=== PATIENT | female | born 1950 | race Caucasian/White ===

== ENCOUNTER 2017-10-12 15:53 | Emergency (ER) | payer MEDICARE, OTHER, SELFPAY ==
[2017-10-12 15:59] VITALS: BP 133/82; PULSE 72; RESP 18; TEMP 36.6; O2SAT 99
--- NOTE | 2017-10-12 16:23 | ED.DENTAL ---
HPI - Dental/Oral General Chief complaint: Dental/Oral Stated complaint: PUSS INSIDE CHEEK Time Seen by Provider: 10/12/17 16:23 Source: patient Mode of arrival: ambulatory Limitations: no limitations History of Present Illness HPI Narrative: Patient states that approximately 1 month ago she was seen by Ear Nose and Throat doctor and had a procedure done to her right-sided parotid gland duct. Was on Augmentin for period of time afterwards. She states she completed that course. She states that at the end of last week she started noticing purulent drainage that she could express from the right-sided duct again. Called her operative surgeon who placed her on Augmentin. States she has been on that for approximately 2 days. She states that the symptoms have not improved. Has not had any fevers. Call the operative surgeon's office again who told her to come to the emergency department. Related Data Home Medications Medication Instructions Recorded Confirmed MOMETASONE FUROATE (ELOCON) 1 alia TOPICAL #30 ml 03/07/16 clobetasol-emollient 1 alia TOPICAL #30 gm 03/07/16 triamcinolone acetonide 1 alia TOPICAL #15 gm 03/07/16 [SALMON OIL ] #0 12/05/16 omeprazole 40 mg PO QAM #0 12/05/16 Previous Rx's Medication Instructions Recorded estradiol 1 patch TD SEE INSTRUCTIONS #8 04/25/17 patch clindamycin HCl 300 mg PO QID 7 Days #28 cap 10/12/17 Allergies Allergy/AdvReac Type Severity Reaction Status Date / Time aspirin [ASPIRIN] Allergy Unknown Unverified 09/03/17 12:36 Review of Systems Constitutional Denies chills, Denies fever(s), Denies lethargy and Denies weakness ENT Comments: Purulent drainage from right-sided parotid gland duct No shortness of breath Cardiovascular Denies dyspnea and Denies dyspnea on exertion Respiratory Denies cough, Denies dyspnea, Denies dyspnea on exertion and Denies wheezing Integumentary/Breasts Denies pruritus, Denies erythema, Denies rash and Denies wounds Neurologic Denies weakness Hematologic/Lymphatic Denies easy bruising Allergic/Immunologic Denies wheezing [facility] Social History Smoking Status: Never smoker Exam Initial Vital Signs Initial Vital Signs: Vital Signs Temperature 97.9 F 10/12/17 15:59 Pulse Rate 72 05/20/18 15:59 Respiratory Rate 18 10/12/17 15:59 Blood Pressure 133/82 H 10/12/17 15:59 Pulse Oximetry 99 10/12/17 15:59 HENMT Mouth: other (Patient with a 1 cm round area and of induration of the right parotid gland. With palpation of this area was able to express purulent material from the parotid gland duct.) Resp Effort & Inspection: normal respiratory effort, able to speak in complete sentences, no respiratory distress and no use of accessory muscles Auscultation: clear to auscultation bilaterally, no rales, no rhonchi and no wheezes Skin General: no rashes or lesions noted, No jaundice and No petechiae Neuro General: alert, awake and oriented x3 Course Vital Signs - 8 hr 10/12/17 15:59 10/12/17 17:21 Temperature 97.9 F Pulse Rate 72 75 Respiratory Rate 18 14 Blood Pressure 133/82 H Blood Pressure [Right Arm] 129/74 H Pulse Oximetry 99 96 MDM - Dental/Oral MDM Narrative Medical decision making narrative: Was able to express purulent material from the right-sided parotid gland duct. This did seem to decrease the fullness that was felt on that side. Has no skin changes overlying her right cheek. Will change her antibiotics to clindamycin. A culture was taken of the purulent material and patient was informed that it would be several days for this to return. She was instructed to contact her operative provider for further evaluation and treatment. She was given return precautions. She expressed understanding and agreement with plan Discharge Plan Departure Patient Disposition: Home, Self-Care Clinical Impression: Acute suppurative parotitis Discharge Date/Time: 10/12/17 17:28 Interventions: ED Discharge Assessment Last Done: 10/12/17 17:24 Instructions: Parotitis Activity Restrictions/Additional Instructions: Stop the Augmentin. Start the antibiotics that she were given today. Call your ear nose and throat surgeon tomorrow for a follow-up. Return to the emergency department for any new or worsening symptoms Prescriptions: New clindamycin HCl 300 mg capsule 300 mg PO QID 7 Days Qty: 28 RF: 0 No Action clobetasol-emollient 0.05 % cream 1 alia Topical Qty: 30 RF: 0 triamcinolone acetonide 0.1 % cream 1 alia Topical Qty: 15 RF: 0 MOMETASONE FUROATE (ELOCON) 1 alia Topical Qty: 30 RF: 0 [SALMON OIL ] Qty: 0 RF: 0 omeprazole 40 MG capsule,delayed release(DR/EC) 40 mg PO QAM Qty: 0 RF: 0 estradiol 0.05 MG/24 HR patch semiweekly 1 patch TD SEE INSTRUCTIONS Qty: 8 RF: 11
[2017-10-12 17:21] VITALS: BP 129/74; PULSE 75; RESP 14; O2SAT 96
== END 2017-10-12 17:28 | disposition home or self-care (01) ==
PROVIDERS: Emergency Provider Emergency Medicine; Family Provider Internal Medicine; PCP Internal Medicine
DX: K11.20 Sialoadenitis, unspecified (principal)
CPT/HCPCS: 87070; 87075; 87205; 99282

== ENCOUNTER → 2017-10-31 12:48 | Outpatient (REF) | payer MEDICARE, OTHER, SELFPAY ==
[2017-10-31 15:15] LABS: Adenovirus F 40/41 Not Detected (Not Detect); Astrovirus Not Detected (Not Detect); Campylobacter Not Detected (Not Detect); Clostridium difficile toxin AB Detected (Not Detect); Cryptosporidium Not Detected (Not Detect); Cyclospora cayetanensis Not Detected (Not Detect); Entamoeba histolytica Not Detected (Not Detect); Enteroaggregative E.coli Not Detected (Not Detect); Enteropathogenic E.coli Not Detected (Not Detect); Enterotoxigenic E.coli It/st Not Detected (Not Detect); Giardia lamblia Not Detected (Not Detect); Norovirus GI/GII Not Detected (Not Detect); Plesiomonsa shigelloides Not Detected (Not Detect); Rotavirus A Not Detected (Not Detect); Salmonella Not Detected (Not Detect); Shiga-like toxin-prod E.coli Not Detected (Not Detect); Shigella/Enteroinvasive E.coli Not Detected (Not Detect); Vibrio Not Detected (Not Detect); Vibrio cholerae Not Detected (Not Detect); Yersinia enterocolitica Not Detected (Not Detect)
== END ==
LOC: LAB 12:48
PROVIDERS: Family Provider Internal Medicine; PCP Internal Medicine; Visit Provider Internal Medicine
DX: R19.7 Diarrhea, unspecified (principal)
CPT/HCPCS: 87507

== ENCOUNTER → 2018-05-29 11:05 | Outpatient (CLI) | payer MEDICARE, OTHER, SELFPAY ==
--- NOTE | 2018-05-29 | DI.MG.S_ITS ---
BILATERAL DIGITAL SCREENING MAMMOGRAM 3D/2D WITH CAD: 05/29/2018 CLINICAL: Routine screening. Comparison is made to exams dated: 02/24/2017 mammogram - [facility], 11/13/2015 mammogram, and 09/29/2014 mammogram - [facility]. The tissue of both breasts is heterogeneously dense. This may lower the sensitivity of mammography. Current study was also evaluated with a Computer Aided Detection (CAD) system. No significant masses, calcifications, or other findings are seen in either breast. There has been no significant interval change. IMPRESSION: NEGATIVE There is no mammographic evidence of malignancy. A 1 year screening mammogram is recommended. This exam was interpreted at Station ID: [id number]. NOTE: For mammograms, a report in lay terms will be sent to the patient. Approximately 15% of breast malignancies will not be visualized mammographically. In the management of a palpable breast mass, a negative mammogram must not discourage biopsy of a clinically suspicious lesion. Electronically Signed By: Jeremias felix/kyrie:05/29/2018 11:53:08 copy to: ELIESER SUAREZ letter sent: Normal Exam ACR BI-RADS Category 1: Negative [id number]
== END ==
PROVIDERS: PCP Internal Medicine; Visit Provider Internal Medicine
DX: Z12.31 Encounter for screening mammogram for malignant neoplasm of breast (principal)
CPT/HCPCS: 77063; 77067

== ENCOUNTER → 2019-03-10 10:07 | Outpatient (CLI) | payer MEDICARE, OTHER, SELFPAY ==
[2019-03-11 16:11] LABS: Cancer Antigen 125 8 U/mL (0-35)
== END ==
PROVIDERS: PCP Internal Medicine; Visit Provider Specialist
DX: N83.202 Unspecified ovarian cyst, left side (principal)
CPT/HCPCS: 36415; 86304

== ENCOUNTER → 2019-07-01 15:40 | Outpatient (CLI) | payer MEDICARE, OTHER, SELFPAY ==
--- NOTE | 2019-07-01 16:05 | DI.MG.S_ITS ---
Patient Name: RANDALL JHA date: 1950 Sex: F Attending Physician: Neeru Indications: Date: 07/01/2019 16:05 At the request of: ELIESER SUAREZ Procedure: MM screening mammo BI BILATERAL DIGITAL SCREENING MAMMOGRAM 3D/2D WITH CAD: 07/01/2019 CLINICAL: Routine screening. Comparison is made to exams dated: 05/29/2018 mammogram, 02/24/2017 mammogram - [facility], 11/13/2015 mammogram, and 09/29/2014 mammogram - [facility]. The tissue of both breasts is heterogeneously dense. This may lower the sensitivity of mammography. Current study was also evaluated with a Computer Aided Detection (CAD) system. No significant masses, calcifications, or other findings are seen in either breast. There has been no significant interval change. IMPRESSION: NEGATIVE There is no mammographic evidence of malignancy. A 1 year screening mammogram is recommended. This exam was interpreted at Station ID: [id number]. NOTE: For mammograms, a report in lay terms will be sent to the patient. Approximately 15% of breast malignancies will not be visualized mammographically. In the management of a palpable breast mass, a negative mammogram must not discourage biopsy of a clinically suspicious lesion. Electronically Signed By: Galdino field/kyrie:07/01/2019 18:20:29 copy to: Hayden Braun letter sent: Normal Exam ACR BI-RADS Category 1: Negative [id number]
== END ==
PROVIDERS: PCP Internal Medicine; Referring Provider Specialist; Visit Provider Specialist
DX: Z12.31 Encounter for screening mammogram for malignant neoplasm of breast (principal)
CPT/HCPCS: 77063; 77067

== ENCOUNTER → 2020-01-08 13:22 | Outpatient (CLI) | payer MEDICARE, OTHER, SELFPAY ==
[2020-01-09 20:46] LABS: COVID19 Sendout Not Detected (Not Detect)
== END ==
PROVIDERS: PCP Internal Medicine; Visit Provider Physician Assistant
DX: Z11.59 Encounter for screening for other viral diseases (principal)
CPT/HCPCS: 87635

== ENCOUNTER → 2020-01-21 13:05 | Outpatient (CLI) | payer MEDICARE, OTHER, SELFPAY | PROVIDERS: PCP Internal Medicine; Referring Provider Internal Medicine; Visit Provider Specialist | DX: Z13.820 Encounter for screening for osteoporosis (principal); Z78.0 Asymptomatic menopausal state; Z82.62 Family history of osteoporosis | CPT/HCPCS: 77080 ==

== ENCOUNTER → 2020-03-08 10:42 | Outpatient (CLI) | payer MEDICARE, OTHER, SELFPAY ==
--- NOTE | 2020-03-08 10:43 | DI.US.S_ITS ---
PROCEDURE: US ABDOMEN COMPLETE INDICATIONS: BLOATING TECHNIQUE: Real-time scanning was performed of the abdominal and retroperitoneal organs, with image documentation. COMPARISON: None. FINDINGS: Liver: Liver is normal in size and homogeneous in echotexture. The main portal vein demonstrates normal size at 1.2 cm and is patent. Gallbladder: No findings of gallstones or sludge are seen. The gallbladder wall is not thickened, measuring 3 mm or less. No specific pericholecystic fluid is seen. The sonographic Slade sign is negative. Biliary ducts: Intrahepatic bile ducts are non-dilated. Extrahepatic bile duct caliber measures 5 mm. Normal is 6-7 mm or less in diameter, or 10 mm or less post-cholecystectomy. Pancreas: Visualized portions of the pancreas are sonographically normal. Spleen: Spleen is normal in size and homogeneous in echotexture. Kidneys: Kidneys are normal in size and echotexture. Right kidney measures 12.4 cm long; left kidney measures 13.3 cm long. No hydronephrosis or nephrolithiasis. There is a simple cyst seen within the left mid kidney at measures up to 4.5 cm. Within the mid cortex of the right kidney, there is a solid, nonshadowing echogenic focus that measures up to 11 mm. No abnormal vascularity can be seen. Aorta: Visualized aorta is normal in caliber at less than 3 cm. Iliacs: Proximal common iliac arteries are normal in caliber at less than 2.5 cm. IVC: Intrahepatic inferior vena cava is patent. Miscellaneous: No free abdominal fluid. IMPRESSION: No imaging explanation is found for this patient's presenting symptoms. The gallbladder demonstrates a normal sonographic appearance. No biliary dilatation is seen. Likely benign fat containing lesion seen involving the mid cortex of the right kidney. Although no specific imaging follow-up is recommended, attention should be paid to this focus on any future follow-up studies. Simple appearing left renal cyst incidentally noted. Dictated by: Dk Mariee M.D. on 03/08/2020 at 11:04 Approved by: Dk Mariee M.D. on 03/08/2020 at 11:05
== END ==
PROVIDERS: PCP Internal Medicine; Referring Provider Internal Medicine; Visit Provider Specialist
DX: R14.0 Abdominal distension (gaseous) (principal); R14.2 Eructation; N83.202 Unspecified ovarian cyst, left side; N28.1 Cyst of kidney, acquired
CPT/HCPCS: 76700

== ENCOUNTER 2020-04-04 13:18 | Outpatient (RCR) | payer MEDICARE, OTHER, SELFPAY ==
--- NOTE | 2020-04-07 15:58 | ST.OPIE ---
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 She states that burping emerges from stomach, often requiring her to shift positions to expel it . Generally she experiences no burping during the day when she is upright, nor during occasional daytime naps which she takes lying propped up on her couch. She believes her bed is propped up 6 but is not sure. She is concerned about her general health d/t lack of good rest, and also has noted slow but consistent unintentional weight loss recently, ~5 lbs at this point . The pt underwent a sleep study that determined she does not meet qualifications for CPAP. She recently also underwent endoscopy with GI Dr. Diaz at [facility] in [place]. He recommended Nortriptyline and/or cannabis. The pt did not like Nortriptyline side effects and discontinued, but finds that cannabis does help her sleep somewhat better at night but does not reduce burping. Also at Dr. Diaz's recommendation d/ t concern that she may be swallowing air, the pt has largely eliminated chewing gum to reduce frequency of swallowing saliva. The pt's diet is consistent each day: She has an egg and kefir smoothie for breakfast, cooked vegetables with butter for lunch, and meat and potatoes for dinner. She does not drink carbonated beverages and consumes small amounts of caffeine only from chocolate occasionally. Typically, she eats dinner at 6:00 and is in bed by 10 pm. She has not noticed a difference in what and when she eats. She endorsed minor indigestion and burping occasionally if she eats too late, but this does not account for the frequency or degree of burping which brings her here today. The pt did report history of choking on saliva when she starts to speak, which has been happening for the 2nd half of her life. Additionally, her right side parotid gland accumulates saliva, requiring the pt to manually express it at least 10x/day. Subjective Observations The pt arrived on time and provided case study supplemental to medical records. Objective Assessment Mental Status Alert,Responsive,Cooperative Food and Liquid Trials Comment Oral peripheral exam and oral trials were not administered as the pt denies difficulty with mastication and swallow. Trials may be administered in future treatment as part of ongoing assessment. Today, detailed case study was collected, including the pt's daily oral intake contents and routine as well as habits that may related to symptoms of GERD/LPR that could contribute to burping issues. She denied GERD/LPR symptoms. She identified the following vegetables as being part of her routine lunch: Carrots, onions, broccoli, green string beans, cauliflower, beets, [place] sprouts, zuchini or other squashes. Advised the pt to complete a 3-wk trial of modifications to lunch diet, eliminating vegetables that tend to be gaseous, such as cauliflower, onions and [place] sprouts. Also advised the pt to elevate the head of her bed to 30 degrees for 3 wks. She was agreeable to this . The pt had questions related to potential effects of stress . She informed that about 5 yrs ago she went through many stressful situations at once and experienced significant anxiety and depression as a result. She felt those issues were ~95% resolved, but questioned if those experiences could be related to her symptoms. We discussed the variety of physical expressions of stress. The pt requested referral to a mental health counselor, and the clinician directed her to [employer]'s website where she could search for a therapist. Recommended she seek a counselor specializing in life transitions. She expressed appreciation and intention to do so. Results While no cause of the pt's condition was obvious, her description of routine oral intake and sleeping habits suggests a possible connection between the timing of intake and types of foods, as well as sleeping posture. A number of details are interestin. The pt regularly consumes a lunch entirely of vegetables for her midday meal, many of which are known to cause gas. The consistency of the timing of her meal and the timing her burping may suggest the two are related. 2. The pt does not appear to have GERD/LPR, based on GI findings and pt report; however, she experiences burping when she is lying flat in bed at night but not when she is propped up on the couch while napping during the day. 3. The pt feels development of burping in her stomach/lower esophagus and frequently needs to modify her body to assist in expelling it. This indicates that the pt is, in fact, belching and not injecting air, the latter of which would be differently treated. 4. If the cause of belching were because the pt is swallowing air with oral intake or saliva, one would expect belching to occur throughout the day or at least with more frequency than only at night. 5. Whether or not stress may be a factor as well is unknown ; however, given the pt's concerns related to anxiety and depression experienced in the [id number] past, she may very well benefit in many ways from working with a mental health counselor. Modification of the pt's intake during midday meal as well as an elevated posture during sleep may have a positive effect in reducing the pt's symptoms. A 3-wk trial of eliminating gaseous vegetables and elevating the HoB to 30 degrees is therefore recommended. The pt was agreeable. Will f/u with the pt in 3 wks at the end of the trial. Recommendations Instrumental Assessment No Swallowing Treatment Yes Frequency 1-3 additional visits over 2 months Recommended Solids Regular Recommended Liquids Thin Other Recommendations Avoid gas-causing foods; elevate head of bed to 30 degrees Referrals Recommended Referrals Psychiatry/Behavioral Health Education Patient/Caregiver Education Described results of evaluation,Patient expressed understanding of evaluation, Patient expressed agreement with goals & treatment plans Goals Short-term Goals 1. The pt will modify diet and sleep posture for three weeks in order to assess potential impact on symptoms. Long-term Goals 1. The pt will eliminate excess burping during rest at night to improve her general health.
--- NOTE | 2020-04-07 16:00 | ST.OPIE ---
Visit Care Team Role Provider Type Hayden Braun MD Primary Care Provider Physician Specialty: Internal Medicine Address: [address] [place] [address], [address] Email: 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 She states that burping emerges from stomach, often requiring her to shift positions to expel it . Generally she experiences no burping during the day when she is upright, nor during occasional daytime naps which she takes lying propped up on her couch. She believes her bed is propped up 6 but is not sure. She is concerned about her general health d/t lack of good rest, and also has noted slow but consistent unintentional weight loss recently, ~5 lbs at this point . The pt underwent a sleep study that determined she does not meet qualifications for CPAP. She recently also underwent endoscopy with GI Dr. Diaz at [facility] in [place]. He recommended Nortriptyline and/or cannabis. The pt did not like Nortriptyline side effects and discontinued, but finds that cannabis does help her sleep somewhat better at night but does not reduce burping. Also at Dr. Diaz's recommendation d/ t concern that she may be swallowing air, the pt has largely eliminated chewing gum to reduce frequency of swallowing saliva. The pt's diet is consistent each day: She has an egg and kefir smoothie for breakfast, cooked vegetables with butter for lunch, and meat and potatoes for dinner. She does not drink carbonated beverages and consumes small amounts of caffeine only from chocolate occasionally. Typically, she eats dinner at 6:00 and is in bed by 10 pm. She has not noticed a difference in what and when she eats. She endorsed minor indigestion and burping occasionally if she eats too late, but this does not account for the frequency or degree of burping which brings her here today. The pt did report history of choking on saliva when she starts to speak, which has been happening for the 2nd half of her life. Additionally, her right side parotid gland accumulates saliva, requiring the pt to manually express it at least 10x/day. Subjective Observations The pt arrived on time and provided case study supplemental to medical records. Objective Assessment Mental Status Alert,Responsive,Cooperative Food and Liquid Trials Comment Oral peripheral exam and oral trials were not administered today but may be administered in future treatment as part of ongoing assessment. Today, detailed case study was collected, including the pt's daily oral intake contents and routine as well as habits that may related to symptoms of GERD/LPR that could contribute to burping issues. She denied GERD/LPR symptoms. She identified the following vegetables as being part of her routine lunch: Carrots, onions, broccoli, green string beans, cauliflower, beets, [place] sprouts, zuchini or other squashes. Advised the pt to complete a 3-wk trial of modifications to lunch diet, eliminating vegetables that tend to be gaseous, such as cauliflower, onions and [place] sprouts. Also advised the pt to elevate the head of her bed to 30 degrees for 3 wks. She was agreeable to this . The pt had questions related to potential effects of stress . She informed that about 5 yrs ago she went through many stressful situations at once and experienced significant anxiety and depression as a result. She felt those issues were ~95% resolved, but questioned if those experiences could be related to her symptoms. We discussed the variety of physical expressions of stress. The pt requested referral to a mental health counselor, and the clinician directed her to [employer]'s website where she could search for a therapist. Recommended she seek a counselor specializing in life transitions. She expressed appreciation and intention to do so. Results While no cause of the pt's condition was obvious, her description of routine oral intake and sleeping habits suggests a possible connection between the timing of intake and types of foods, as well as sleeping posture. A number of details are interestin. The pt regularly consumes a lunch entirely of vegetables for her midday meal, many of which are known to cause gas. The consistency of the timing of her meal and the timing her burping may suggest the two are related. 2. The pt does not appear to have GERD/LPR, based on GI findings and pt report; however, she experiences burping when she is lying flat in bed at night but not when she is propped up on the couch while napping during the day. 3. The pt feels development of burping in her stomach/lower esophagus and frequently needs to modify her body to assist in expelling it. This indicates that the pt is, in fact, belching and not injecting air, the latter of which would be differently treated. 4. If the cause of belching were because the pt is swallowing air with oral intake or saliva, one would expect belching to occur throughout the day or at least with more frequency than only at night. 5. Whether or not stress may be a factor as well is unknown ; however, given the pt's concerns related to anxiety and depression experienced in the [id number] past, she may very well benefit in many ways from working with a mental health counselor. Modification of the pt's intake during midday meal as well as an elevated posture during sleep may have a positive effect in reducing the pt's symptoms. A 3-wk trial of eliminating gaseous vegetables and elevating the HoB to 30 degrees is therefore recommended. The pt was agreeable. Will f/u with the pt in 3 wks at the end of the trial. Recommendations Instrumental Assessment No Swallowing Treatment Yes Frequency 1-3 additional visits over 2 months Recommended Solids Regular Recommended Liquids Thin Other Recommendations Avoid gas-causing foods; elevate head of bed to 30 degrees Referrals Recommended Referrals Psychiatry/Behavioral Health Education Patient/Caregiver Education Described results of evaluation,Patient expressed understanding of evaluation, Patient expressed agreement with goals & treatment plans Goals Short-term Goals 1. The pt will modify diet and sleep posture for three weeks in order to assess potential impact on symptoms. Long-term Goals 1. The pt will eliminate excess burping during rest at night to improve her general health.
--- NOTE | 2020-07-10 14:13 | ST.OPDS ---
Visit Care Team Role Provider Type Hayden Braun MD Primary Care Provider Physician Address: [address] [place], [address] Huong Siddiqi MD Attending Provider Physician Referring Provider Address: [address] [place] [address], [address] THERMOFORMING OPERATOR Treatment Note THERMOFORMING OPERATOR Treatment Note Start: 07/10/20 14:10 Freq: Status: Active Protocol: Document 07/10/20 14:10 LADY (Rec: 07/10/20 14:10 LADY [email or web address]) Speech Pathology Treatment Note Visit Information Plan of Care Dates 04/04/20 - 07/05/19 Insurance Information Medicare Setting Treatment Setting Outpatient Care Visit Type Note Type Discharge Summary General Information General Information The pt is a 70-yr-old female who has been experiencing excessive nighttime burping for over a year, which disrupts her sleep. She states that burping emerges from stomach, often requiring her to shift positions to expel it . Generally she experiences no burping during the day when she is upright, nor during occasional daytime naps which she takes lying propped up on her couch. She believes her bed is propped up 6 but is not sure. She is concerned about her general health d/t lack of good rest, and also has noted slow but consistent unintentional weight loss recently, ~5 lbs at this point . The pt underwent a sleep study that determined she does not meet qualifications for CPAP. She recently also underwent endoscopy with GI Dr. Diaz at [facility] in [place]. He recommended Nortriptyline and/or cannabis. The pt did not like Nortriptyline side effects and discontinued, but finds that cannabis does help her sleep somewhat better at night but does not reduce burping. Also at Dr. Diaz's recommendation d/ t concern that she may be swallowing air, the pt has largely eliminated chewing gum to reduce frequency of swallowing saliva. The pt's diet is consistent each day: She has an egg and kefir smoothie for breakfast, cooked vegetables with butter for lunch, and meat and potatoes for dinner. She does not drink carbonated beverages and consumes small amounts of caffeine only from chocolate occasionally. Typically, she eats dinner at 6:00 and is in bed by 10 pm. She has not noticed a difference in what and when she eats. She endorsed minor indigestion and burping occasionally if she eats too late, but this does not account for the frequency or degree of burping which brings her here today. The pt did report history of choking on saliva when she starts to speak, which has been happening for the 2nd half of her life. Additionally, her right side parotid gland accumulates saliva, requiring the pt to manually express it at least 10x/day. Subjective Observations/Patient Presentation The pt was seen 04/04/20 for initial evaluation with recommendation for f/u in 3 wks. The pt has not returned. She is discharged at this time . Chief Complaint(s) Swallowing Objective Short Term Goals 1. The pt will modify diet and sleep posture for three weeks in order to assess potential impact on symptoms. Detention Goals 1. The pt will eliminate excess burping during rest at night to improve her general health. Plan Therapy Recommendations Discharge from Speech Therapy
== END 2020-07-12 07:51 ==
LOC: SP 13:18
PROVIDERS: PCP Internal Medicine; Referring Provider Specialist; Visit Provider Specialist
DX: R14.2 Eructation (principal); G47.30 Sleep apnea, unspecified
CPT/HCPCS: 92610

== ENCOUNTER → 2020-05-11 12:40 | Outpatient (CLI) | payer MEDICARE, OTHER, SELFPAY ==
--- NOTE | 2020-05-11 | DI.US.S_ITS ---
PROCEDURE: US PELVIC COMPLETE INDICATIONS: LEFT ADNEXAL CYST TECHNIQUE: Real-time scanning was performed of the pelvic organs, with image documentation. Additional endovaginal scanning was necessary due to incomplete visualization of the adnexal and endometrial structures by transabdominal scanning. COMPARISON: [facility], US, US PELVIC COMPLETE, 11/04/2019, 14:43. [facility], US, US ABDOMEN COMPLETE, 03/08/2020, 11:15. [facility], US, US PELVIC COMPLETE, 03/10/2019, 9:49. FINDINGS: Transabdominal scanning: Limited scanning through the kidneys shows no hydronephrosis. No pathologic free abdominal or pelvic fluid. Endovaginal scanning: Uterus: Uterus is surgically absent. Ovaries: Right ovary measures 3.3 x 2.1 x 2.2 cm. Left ovary measures 3.1 x 1.7 x 1.6 cm. There is a 1 cm hypoechoic nodule in the mid right kidney, compatible with an angiomyolipoma. A simple cyst is noted in left kidney measuring 4.6 x 3.5 x 4.2 cm. Peristalsing bowel loops are noted in the adnexa bilaterally. IMPRESSION: 1. Absence of uterus consistent with hysterectomy. 2. Normal ovaries bilaterally. 3. 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 4. A 4.6 x 3.5 x 4.2 cm simple cyst in left kidney. Dictated by: Marin Ayala M.D. on 05/11/2020 at 14:45 Approved by: Marin Ayala M.D. on 05/11/2020 at 14:50
== END ==
PROVIDERS: PCP Internal Medicine; Referring Provider Internal Medicine; Visit Provider Internal Medicine
DX: N94.89 Other specified conditions associated with female genital organs and menstrual cycle (principal); N28.1 Cyst of kidney, acquired; D17.71 Benign lipomatous neoplasm of kidney; Z90.710 Acquired absence of both cervix and uterus
CPT/HCPCS: 76856

== ENCOUNTER 2020-08-01 09:18 | Outpatient (RCR) | payer MEDICARE, OTHER, SELFPAY ==
--- NOTE | 2020-08-01 18:09 | ST.OPIE ---
Visit Care Team Role Provider Type Hayden Braun MD Primary Care Provider Physician Specialty: Internal Medicine Address: [address] [place] [address], [address] Email: [email or web address] Huong Siddiqi MD Attending Provider Physician Referring Provider Specialty: RECRUITER Address: [address] [place] [address], [address] Email: [email or web address] Speech-Language Pathology Initial Evaluation TOP STOP ATTACHER Clinical Swallow Evaluation Start: 08/01/20 17:43 Freq: Status: Active Protocol: Document 08/01/20 17:43 LADY (Rec: 08/01/20 18:08 LADY [email or web address]) Clinical Swallow Evaluation Session Time Visit Start Time 09:30 Visit Stop Time 10:10 Total Visit Minutes 40 Visit Information Visit Number Initial Evaluation Plan of Care Dates 08/01/20 - 11/01/20 Insurance Information Medicare Referral Referring Provider Dr. 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 Personal conflicts prevented her from attending therapy at that time . She returns today to again address her symptoms. The pt has been experiencing excessive burping, primarily at night, for over a year. It keeps her awake at night, often requiring her to shift positions d/t gaseous discomfort. Since last Speech Therapy appt in March, the pt has experimented with food modifications, specifically eliminating FODMAPs. She feels there is a connection between food and her symptoms. The pt also c/o consistently experiencing poor vocal quality upon waking in the mornings. The pt coughs until she produces a thin whitish film that she believes coats her VFs overnight. Her voice is then clear. This has been happening for 30-40 yrs. She endorsed PND and suspects she may have some allergies. Subjective Observations The pt arrived on time and provided updated case history since last seen in Mar. Findings Comment Consulted with pt about her symptoms. Educated her in scope of Speech Pathology services related to swallow and voice. Scope of practice related to eructation is limited to excessive swallowing of air and/or air injection into the esophagus. Based on pt's reports of abdominal discomfort, belly belching, and increased flatulence, injection of air is not suspected. Discussed with pt Modified Barium Swallow Study (MBSS) for further assessment of swallow, which would reveal excessive air consumption not well evaluated by bedside swallow evaluation. The pt was interested in pursuing this, and request for MD orders was sent to referring doctor. Plan to f/u with pt after MBSS in outpatient clinic RE findings and POC. Also recommended to pt a referral to [facility] for consultation/evaluation of dietary influences on her diagnosis, which seems much more likely the cause than swallow or injection sources, particularly given the pt's observations via diet modifications. The pt was in agreement with this recommendation, and request for orders also faxed to MD. Finally, discussed the pt's voice complaints. Recommended ENT and/or Environmental Studies Professor consultation to better identify cause of mucus-like buildup overnight. Suggested PND may play a role, possibly contributed by mouth breathing or dry air in her home overnight. Suggested the pt sleep with a humidifier in room to reduce dryness. The pt was receptive to such a trial prior to pursuing ENT or Environmental Studies Professor referrals. Speech Pathology voice therapy does not appear to be an appropriate route to address this concern of the patient's. She verbalized understanding. Impact on Safety and Functioning No limitations Comments Possible impact on burping disorder; To be determined via MBS Recommendations Instrumental Assessment Yes Frequency MBSS + F/U x1; Determine POC after that. Recommended Solids Regular Recommended Liquids Thin Medication Recommendations As Tolerated Referrals Recommended Referrals Dietary Education Patient/Caregiver Education Described results of evaluation,Patient expressed understanding of evaluation, Patient expressed agreement with goals & treatment plans Goals Short-term Goals The pt will participate in Modified Barium Swallow Study for further evaluation of air intake with swallow and to guide POC. Long-term Goals The pt will demonstrate normal swallow function without excessive intake of air during swallow.
--- NOTE | 2020-12-19 13:17 | ST.IPDYTX ---
Visit Care Team Role Provider Type Hayden Braun MD Primary Care Provider Physician Specialty: Internal Medicine Address: [address] [place] [address], [id number] Email: [email or web address] Huong Siddiqi MD Attending Provider Physician Referring Provider Specialty: HEAD START COORDINATOR Address: [address] [place] [address], [id number] Email: [email or web address] [email or web address] Dysphagia Treatment [employer] Dysphagia Treatment Start: 08/01/20 17:43 Freq: Status: Active Protocol: Document 12/19/20 13:13 LADY (Rec: 12/19/20 13:14 LADY [email or web address]) Dysphagia Treatment Visit Information Plan of Care Dates 08/01/20 - 11/01/20 Insurance Information Medicare Setting Assessment Location Outpatient Care Visit Type Note Type Discharge Summary Patient Information Subjective Observations The pt was seen for Modified Barium Swallow Study on with recommended referral to GI and ENT. Dysphagia therapy was not recommended. The pt is discharged from services. Treatment Plan Dysphagia Goals The pt will participate in Modified Barium Swallow Study for further evaluation of air intake with swallow and to guide POC. GOAL MET with above findings. Follow Up Plan Discharge from dysphagia therapy
--- NOTE | 2021-04-25 17:46 | ST.OPDS ---
Visit Care Team Role Provider Type Hayden Braun MD Primary Care Provider Physician Address: [address] [place] [address], [address] Huong Siddiqi MD Attending Provider Physician Referring Provider Address: [address] [place] [address], [address] Pt was discharged from Speech Therapy services on 03/21/21. See treatment note of that date for details.
== END 2021-06-26 09:34 ==
LOC: SP 09:18
PROVIDERS: PCP Internal Medicine; Referring Provider Specialist; Visit Provider Specialist
DX: R14.2 Eructation (principal); G47.30 Sleep apnea, unspecified
CPT/HCPCS: 92610

== ENCOUNTER → 2020-08-15 09:07 | Outpatient (CLI) | payer MEDICARE, OTHER, SELFPAY ==
--- NOTE | 2020-08-15 09:08 | DI.RAD.S_ITS ---
PROCEDURE: FL BARIUM SWALLOW W SPEECH INDICATIONS: Burping disorder COMPARISON: None. TECHNIQUE: Examination was conducted in conjunction with speech pathology per standard protocol. In the lateral projection, filming was performed of the patient swallowing. AP projection filming may also be performed with patient swallowing. COMPARISON: FINDINGS: Function: The oral preparatory phase appears normal, with proper containment. The subsequent oral propulsive phase, pharyngeal phase, and esophageal phase of swallowing also appear normal with all proffered substances. No laryngotracheal penetration or aspiration. No pathologic vallecular pooling. Moderate amount of air was swallowed with thin liquids. No swallow air was identified with semi-solid or solid materials. Morphology: No cricopharyngeal bar is identified. No cervical esophageal webs. No Zenker's diverticulum. No strictures. IMPRESSION: Air swallowing noted with liquids. Dictated by: Lou Askew MD, PhD on 08/15/2020 at 10:59 Approved by: Lou Askew MD, PhD on 08/15/2020 at 11:01
--- NOTE | 2020-08-15 17:17 | ST.SWALLOW ---
Visit Care Team Role Provider Type Hayden Braun MD Primary Care Provider Physician Specialty: Internal Medicine Address: [address] [place] [address], [address] Email: [email or web address] Huong Siddiqi MD Attending Provider Physician Referring Provider Specialty: STORE CLERK Address: [address] [place] [address], [address] Email: [email or web address] ST Modified Barium Swallow Study COMMERCIAL SEWING INSTRUCTOR Modified Barium Swallow Study Start: 08/15/20 16:12 Freq: Status: Active Protocol: Document 08/15/20 16:13 LNK (Rec: 08/15/20 17:04 LNK [id number]) Modified Barium Swallow Study Total Time Visit Start Time 09:30 Visit Stop Time 10:00 Total Visit Minutes [address] Siddiqi Reason for Referral burping dissorder Setting Setting Outpatient Care Patient Information Identification Type Name,Date of Patient History The pt has been experiencing excessive burping, primarily at night, for over a year. It keeps her awake at night, often requiring her to shift positions d/t gaseous discomfort. Since last Speech Therapy appt in March, the pt has experimented with food modifications, specifically eliminating FODMAPs. She feels there is a connection between food and her symptoms. The pt also c/o consistently experiencing poor vocal quality upon waking in the mornings. The pt coughs until she produces a thin whiteish film that she believes coats her VFs overnight. Her voice is then clear. This has been happening for 30-40 yrs. She endorsed PND and suspects she may have some allergies. Subjective Observations Pt was seated in the fluoroscopy chair. Instructions and procedures were described to the pt, who indicated that she understood and agreed to proceed. Patient Positioning Position View Lateral Imaging Lateral View Textures Administered Trials Presented Thin Liquid via Spoon,Thin Liquid via Cup,Pudding Thick Liquid via Spoon,Regular Textures Oral Phase Source: MBSIMP (TM) (C) Bolus Specific Scoring Grid Lip Closure WFL Tongue Control During Bolus Hold WFL Bolus Prep/Mastication WFL Bolus Transport/Lingual Motion WFL A/P Lingual Propulsion Delay No Oral Residue WFL Residue Clearing WFL Nasal Regurgitation No Additional Oral Phase Observations Informal observation indicated tht oral structures and function were WNL. Dentition adequate and in good hygiene. Pharyngeal Phase Source: MBSIMP (TM) (C) Bolus Specific Scoring Grid Delayed Initiation of Pharyngeal Swallow No Soft Palate Elevation WFL Tongue Base Strength/Range of Motion Minimal Impairment Residue Along the Tongue Base No: Trace to minimal - WFL Clearance of Residue Along Tongue Base WFL Laryngeal Elevation Minimal Impairment Anterior Hyoid Movement Minimal Impairment Epiglottic Range of Motion Minimal Impairment Vallecular Residue No: Trace to minimal - WFL Clearance of Vallecular Residue Minimal Impairment Laryngeal Vestibular Closure WFL Posterior Pharyngeal Wall Residue No: Trace to minimal - WFL Clearance of Posterior Pharyngeal Wall Minimal Impairment Residue Upper Esophageal Sphincter Opening WFL Residue in the Pyriform Sinuses No: Trace to minimal - WFL Clearance of Residue in the Pyriform WFL Sinuses Esophageal Clearance Upright Position Mild Impairment Pharyngoesophageal Backflow Observed No Additional Pharyngeal Phase Observations The pharyngeal phase of the swallow presented with minimal to mild impairment. The hyolaryngeal elevation was WFL . The larynx elevated adequately; however the hyoid movement was inconsistent, but adequate. Premature spillage to the pyriform sinuses was noted x1. Flash penetration into the laryngeal vestibule was observed x2. No residual contrast remained within the vestibule. There was minimal residual in the valeculla post -swallow, but it was cleared with spontaneous subsequent swallows. Minimal residue was also noted on the posterior pharyngeal wall and within the pyriform sinuses. Again, spontaneous swallows cleared all residue. Swallowed air was observed for all thin liquid trials (7) and the spontaneous second swallow of residual contrast (2). Air was not swallowed with barium paste or with cookie trials. In total, 10 trials were recorded. A/P View Esophageal Observations Esophageal Function The upper portion of the esophagus was observed. Pt presented with osteophytes near the pharyngoesophageal junction that alters but did not interfere with the bolus flow. At one point the esophagus becomes significantly narrow. A scanning screen of the esophagus was not completed. Clinical Impressions Findings The pt presented with aerophagia of unknown etiology . Pt reported that she did not notice that she was swallowing air. She did not burp during the evaluation. The pt reports that the excessive burping occurs only at night. Additionally she reports that in the morning she coughs up phlegm. She also reports a hoarse voice in the mornings that clears once she coughs up the phlegm. She noted that she had an EGD that indicated no esophageal tissue changes relative to reflux. However, her symptoms appear be related to possible silent reflux with the build up of phlegm at the larynx affecting her voice in the morning. Recommend referral to ENT for hoarseness and GI to r/o silent reflux. Patient Appropriate for Therapy No: ST voice therapy does not appear to be an appropriate route t Recommendations Treatment Plan Recommended Referrals GI Consult,ENT Consult
== END ==
PROVIDERS: PCP Internal Medicine; Referring Provider Specialist; Visit Provider Specialist
DX: R14.2 Eructation (principal); G47.30 Sleep apnea, unspecified
CPT/HCPCS: 74230; 92611

== ENCOUNTER → 2020-10-17 10:01 | Outpatient (CLI) | payer MEDICARE, OTHER, SELFPAY ==
--- NOTE | 2020-10-17 10:09 | DIET.PN ---
Dietary Progress Note Assessment: 70y F attending nutrition visit c spouse of 49y for help with belching. Pt referred to nutrition after visits with speech therapy resulting in an oral phase swallow study finding gulping of air with thin liquid intake but no indication speech therapy will help. Pt has had this belching x3-5y, mainly in the middle of the night causing sleep disturbance, burps do not smell (odor free even according to ). Belching seems to be positional in nature as they occur when she is laying down, not sitting or standing up. Pt has never had table tilt swallow study to check functionality of LES. Pt has been trying a low FODMAP diet for the past few weeks to months without definitive sx improvement. This is problematic as pt is already on a very restrictive diet for other health conditions. This RD has concerns about nutrient adequacy as well as nutrition quality of life. Pt was gifted a IgG food sensitivity test which came back with multiple new food sensitivities including eggs, chicken... Nutrition Hx: Pt has hives with aspirin since 19y old, dictionary editor recommended low salicylate diet which pt has followed pretty regimented ever since, then got psoriasis so was recommended a low oxylate diet by a dictionary editor and follows that fairly strictly though still uses clobetasol intermittently and has breakthrough sx. Pt mostly avoids dairy except some hard cheeses. daily smoothie: (pear or apple, not not high FODMAP) or honey dew melon c banana, hb egg, plant based milk, barleans cold pressed flax oil GI Sx: pt reports no constipation or diarrhea, has a big flatulance when waking in the am. 2014 c.diff had abx which helped but noticed these belching sx after this time. Pt has lost 15# over the past 1y is concerning for pt, pt feels she is eating a lot of food but her spouse states she does not eat very much at all. Nutrition Diagnosis: defer nutrition dx at this time Interventions: 1. Discussed problematic IgG food sensitivity testing as having lack of evidence to support its use, especially in context of this pt with extensive food avoidances (pt provided list of foods she consumes which is fewer than 30 food items). Recc pt not further restrict diet at this time. 2. Discussed c pt low FODMAP diet usually indicated for lower GI sx such as bloating, diarrhea, constipation, malabsorption rather than upper GI concerns. Because pt not seeing resolving sx after several weeks to months on low FODMAP diet, further indicates this may not be correct intervention. Recc pt stop low FODMAP diet or begin reintroduction phase. Pt has preferred book on the topic by Inna Thompson RDN. 3. Discussed risks of further weight loss and increased risk of nutrient deficiency with further removal of food items. Recc pt get table tilt swallow study to test patency of LES before moving forward with more nutrition changes. Expressed to pt goal of increasing variety in her diet rather than restricting more for overall health, vitality, and nutrient adequacy. 4. Recc pt start including times she finishes last meal and times she experiences belching to help better characterize any relationships therein. Monitoring/Evaluations: RD sending progress note to PCP Kade and referring provider Foist with strong recc for pt to have table tilt swallow study after thorough nutrition consultation.
== END ==
PROVIDERS: PCP Internal Medicine; Referring Provider Internal Medicine; Visit Provider Internal Medicine
DX: R14.2 Eructation (principal); Z91.012 Allergy to eggs; Z91.018 Allergy to other foods; Z71.3 Dietary counseling and surveillance
CPT/HCPCS: 97802

== ENCOUNTER → 2021-04-10 15:42 | Outpatient (CLI) | payer MEDICARE, OTHER, SELFPAY ==
--- NOTE | 2021-04-10 15:43 | DI.MG.S_ITS ---
BILATERAL DIGITAL SCREENING MAMMOGRAM 3D/2D WITH CAD: 04/10/2021 CLINICAL: Routine screening. Comparison is made to exams dated: 07/01/2019 mammogram, 05/29/2018 mammogram, 02/24/2017 mammogram - [facility], and 09/29/2014 mammogram - [facility]. There are scattered fibroglandular elements in both breasts. Current study was also evaluated with a Computer Aided Detection (CAD) system. There is a 1 cm oval high density asymmetry with an obscured and circumscribed margin in the left breast at 1 o'clock middle depth. This is more prominent. No other significant masses, calcifications, or other findings are seen in either breast. IMPRESSION: INCOMPLETE: NEEDS ADDITIONAL IMAGING EVALUATION The 1 cm oval high density asymmetry in the left breast most likely is a fibroadenoma and is indeterminate. Additional views with possible ultrasound are recommended. This exam was interpreted at Station ID: [id number]. NOTE: For mammograms, a report in lay terms will be sent to the patient. Approximately 15% of breast malignancies will not be visualized mammographically. In the management of a palpable breast mass, a negative mammogram must not discourage biopsy of a clinically suspicious lesion. Electronically Signed By: Josefina armendariz/kyrie:04/10/2021 17:03:21 copy to: Hayden Braun letter sent: Additional Imaging Needed ACR BI-RADS Category 0: Incomplete 3340F
== END ==
PROVIDERS: PCP Internal Medicine; Referring Provider Specialist; Visit Provider Specialist
DX: Z12.31 Encounter for screening mammogram for malignant neoplasm of breast (principal)
CPT/HCPCS: 77063; 77067

== ENCOUNTER → 2021-06-07 12:50 | Outpatient (CLI) | payer MEDICARE, SELFPAY ==
--- NOTE | 2021-06-07 12:54 | DI.MG.S_ITS ---
UNILATERAL LEFT DIGITAL DIAGNOSTIC MAMMOGRAM 3D/2D WITH ADDITIONAL VIEWS: 06/07/2021 CLINICAL: Additional evaluation requested from prior study. Comparison is made to exams dated: 04/10/2021 mammogram, 07/01/2019 mammogram, and 05/29/2018 mammogram - [facility]. The tissue of left breast is heterogeneously dense. This may lower the sensitivity of mammography. There is an oval equal density asymmetry with obscured and circumscribed margins in the left breast middle depth lateral region seen on the craniocaudal view only. This persists on additional views. No other significant masses or calcifications are seen in the breast. IMPRESSION: INCOMPLETE: NEEDS ADDITIONAL IMAGING EVALUATION The oval equal density asymmetry in the left breast is indeterminate. An ultrasound is recommended. Ultrasound will be performed immediately following the current exam. This exam was interpreted at Station ID: [id number]. NOTE: For mammograms, a report in lay terms will be sent to the patient. Approximately 15% of breast malignancies will not be visualized mammographically. In the management of a palpable breast mass, a negative mammogram must not discourage biopsy of a clinically suspicious lesion. Electronically Signed By: Jeremias Lang M.D. ddjohn/:06/07/2021 14:54:06 copy to: Hayden Braun ACR BI-RADS Category 0: Incomplete 3340F
--- NOTE | 2021-06-07 12:54 | DI.US.S_ITS ---
LIMITED ULTRASOUND OF LEFT BREAST AND AXILLA: 06/07/2021 CLINICAL: Palpable left breast lumps x 2 x 1 month. Comparison is made to exams dated: 06/07/2021 mammogram, 04/10/2021 mammogram, 07/01/2019 mammogram, and 05/29/2018 mammogram - [facility]. Color flow and real-time ultrasound of the left breast 2-5 o'clock, and axilla regions were performed on the areas of interest. There is a 1 cm x 0.4 cm x 0.9 cm oval mass with an indistinct margin in the left breast at 2:30 o'clock anterior depth 2 cm from the nipple. This oval mass is hypoechoic. This may correlate with mammography findings. Color flow imaging demonstrates that there is no vascularity present. There also is a 1.1 cm x 0.5 cm x 0.8 cm oval mass with an indistinct margin in the left breast at 2:30 o'clock middle depth 7 cm from the nipple. This oval mass is hypoechoic with posterior acoustic shadowing. This may correlate with mammography findings. Color flow imaging demonstrates that there is vascularity present. No suspicious enlarged lymph nodes were seen sonographically in the left axilla. IMPRESSION: SUSPICIOUS OF MALIGNANCY The 1 cm x 0.4 cm x 0.9 cm oval mass in the left breast at 2:30 o'clock anterior depth is suspicious of malignancy. An ultrasound guided biopsy is recommended. The 1.1 cm x 0.5 cm x 0.8 cm oval mass in the left breast at 2:30 o'clock middle depth is suspicious of malignancy. An ultrasound guided biopsy is recommended. The findings were discussed with the patient at the conclusion of the study by Dr. Priest. This exam was interpreted at Station ID: [id number]. Electronically Signed By: Jeremias Lang M.D. ddjohn/:06/07/2021 14:57:43 copy to: Hayden Braun letter sent: Biopsy Required Ultrasound BI-RADS: 4 Suspicious for malignancy
== END ==
PROVIDERS: PCP Internal Medicine; Referring Provider Specialist; Visit Provider Specialist
DX: R92.8 Other abnormal and inconclusive findings on diagnostic imaging of breast (principal); N63.21 Unspecified lump in the left breast, upper outer quadrant
CPT/HCPCS: 76642; 77065; G0279

== ENCOUNTER → 2021-06-20 10:12 | Outpatient (CLI) | payer MEDICARE, SELFPAY ==
--- NOTE | 2021-06-20 | DI.MG.S_ITS ---
UNILATERAL LEFT DIGITAL DIAGNOSTIC MAMMOGRAM 3D/2D POST-NEEDLE BIOPSY: 06/20/2021 CLINICAL: Unspecified lump in left breast. Post clip placement. Comparison is made to exams dated: 06/07/2021 mammogram, 04/10/2021 mammogram, and 07/01/2019 mammogram - [facility]. The tissue of left breast is heterogeneously dense. This may lower the sensitivity of mammography. Two bipsy clips are present in the left breast at expect biopsy sites. IMPRESSION: Two bipsy clips are present in the left breast at expect biopsy sites. This exam was interpreted at Station ID: [id number]. NOTE: For mammograms, a report in lay terms will be sent to the patient. Approximately 15% of breast malignancies will not be visualized mammographically. In the management of a palpable breast mass, a negative mammogram must not discourage biopsy of a clinically suspicious lesion. Electronically Signed By: Marin Ayala M.D. fx/:06/20/2021 17:44:18 copy to: Hayden Braun ACR BI-RADS Category n/a
--- NOTE | 2021-06-20 | PATH_ITS ---
[facility] Accession Number: [id number] . 01 Material submitted: . PART A: breast - LEFT BREAST MASS 2:30 2CMFN PART B: breast - LEFT BREAST MASS 2:30 7CMFN . 02 Diagnosis: A. Left Breast Mass, 2:30 o'clock, 2 cm from the Nipple, Biopsy: Breast parenchyma with nodular/dense stromal fibrosis and focal microcalcifications. Negative for atypia, carcinoma in situ, and malignancy. . B. Left Breast Mass, 2:30 o'clock, 7 cm from the Nipple, Biopsy: Breast parenchyma with mild stromal fibrosis and focal microcalcifications. Negative for atypia, carcinoma in situ, and malignancy. . . COMMENT: Deeper levels are examined on parts A and B. Clinico-radiographic correlation is necessary. MRV 06/22/2021 1707 Local . 02 Electronically signed: Mary Jo Saleh MD, Pathologist NPI- [id number] . 01 Gross description: . Received two formalin-filled containers, both labeled with the patient's name: . A. In a container labeled left breast 2:30, 2 cm FN, the specimen is received with a plastic filter in container, sample loose in container and consists of two light yellow-giraldo portions of tissue which range in size from 0.4 x 0.2 x 0.2 cm to 1.5 x 0.2 x 0.2 cm. The specimen is totally submitted in cassette A. B. In a container labeled left breast 2:30, 7 cm FN, the specimen is received with a plastic filter in container, sample loose in container and consists of three light yellow-giraldo portions of tissue which range in size from 0.4 x 0.2 x 0.2 cm to 2.0 x 0.2 x 0.2 cm. The specimen is totally submitted in cassette B. . Possible collection date and time per requisition: 06/20/2021 at 12:23. Total fixation time: Approximately 15 hours. ([id number]) /FRR 06/21/2021 0340 Local . 02 Pathologist provided ICD-10: N63.20 . 02 CPT . 549472, 230891 Performed at: 01 [facility] [address] [place] [id number] MD Jeremias Mcneal MD Phone: [phone] Performed at: 02 [facility] [address] [place] [id number] MD Sobia Dumont MD Phone: [phone]
--- NOTE | 2021-06-20 10:13 | DI.US.S_ITS ---
MULTIPLE ULTRASOUND GUIDED BIOPSIES LEFT BREAST USING VACUUM DEVICE WITH POST MAMMOGRAPHIC AND ULTRASOUND IMAGIN06/20/2021 CLINICAL: Left breast mass x 2. PATIENT CONSENT: Risks (minor bleeding, infection, vasovagal reaction and repeat procedure), benefits and alternatives were explained to the patient and written informed consent was obtained. Correlation is made to exams dated: 06/07/2021 ultrasound, 06/07/2021 mammogram, 04/10/2021 mammogram, 07/01/2019 mammogram, 05/29/2018 mammogram, and 02/24/2017 mammogram - [facility]. An ultrasound guided biopsy using real-time ultrasound was performed for the oval mass located in the left breast at 2:30 o'clock posterior depth 2 cm from nipple. This was described on the previous ultrasound report. The skin was prepped in the usual manner. Local anesthetic was administered to the access site. The abnormality was approached from the lateral aspect. A 13 gauge biopsy needle was placed adjacent to the abnormality under ultrasound guidance. Once the needle was documented to be in the correct location, five specimens were obtained using the Mammotome biopsy system. Post procedure mammographic and ultrasound imaging demonstrates the clip at the targeted area. Additional biopsy using Achieve spring loaded biopsy device was performed (x 2). The specimens were sent to the laboratory for pathological analysis. An ultrasound guided biopsy using real-time ultrasound was performed for the oval mass located in the left breast at 2:30 o'clock posterior depth 7 cm from nipple. This was described on the previous ultrasound report. The skin was prepped in the usual manner. Local anesthetic was administered to the access site. The abnormality was approached from the lateral aspect. A 13 gauge biopsy needle was placed adjacent to the abnormality under ultrasound guidance. Once the needle was documented to be in the correct location, five specimens were obtained using the Mammotome biopsy system. Post procedure mammographic and ultrasound imaging demonstrates the clip at the targeted area. The specimens were sent to the laboratory for pathological analysis. IMPRESSION: ULTRASOUND GUIDED BIOPSY BENIGN Ultrasound guided biopsies of the masses in the left breast were successful. Pathology results of the 2:30 o'clock mass 2cm from the nipple indicated benign breast parenchyma with stromal fibrosis and focal microcalcifications. Pathology results of the 2:30 o'clock mass 7cm from the nipple indicated benign breast parenchyma with stromal fibrosis and focal microcalcifications. Pathology and radiology findings are concordant. Recommend follow up left breast mammogram and left breast ultrasound in 6 months to document stability. This exam was interpreted at Station ID: [id number]. Marin Reyes M.D. fx,aty/:06/28/2021 08:38:34 copy to: Hayden Braun
== END ==
PROVIDERS: PCP Internal Medicine; Referring Provider Specialist; Visit Provider Specialist
DX: N60.32 Fibrosclerosis of left breast (principal)
CPT/HCPCS: 19083; 19084; 77065

== ENCOUNTER → 2021-12-25 13:27 | Outpatient (CLI) | payer OTHER, SELFPAY ==
--- NOTE | 2021-12-25 13:30 | DI.MG.S_ITS ---
UNILATERAL LEFT DIGITAL DIAGNOSTIC MAMMOGRAM 3D/2D SHORT-TERM FOLLOW-UP: 12/25/2021 CLINICAL: Short term follow up for the left breast. Comparison is made to exams dated: 06/07/2021 mammogram, 04/10/2021 mammogram, 07/01/2019 mammogram, and 05/29/2018 mammogram - [facility]. The tissue of left breast is heterogeneously dense. This may lower the sensitivity of mammography. There is an asymmetry in the left breast middle depth lateral region seen on the craniocaudal view only. This is less prominent and correlates with the biopsy. No other significant masses or calcifications are seen in the breast. IMPRESSION: INCOMPLETE: NEEDS ADDITIONAL IMAGING EVALUATION The asymmetry in the left breast remains indeterminate. A targeted ultrasound is recommended and will immediately follow. Based on the Tyrer Cuzick model (a risk assessment model) the patient's lifetime risk is 8.4% and her 10 year risk is 6.2%. According to the ACR, ACS, and NCCN guidelines, an annual breast MRI exam along with mammogram is recommended if the patient's lifetime risk is 20% or greater. This exam was interpreted at Station ID: [id number]. NOTE: For mammograms, a report in lay terms will be sent to the patient. Approximately 15% of breast malignancies will not be visualized mammographically. In the management of a palpable breast mass, a negative mammogram must not discourage biopsy of a clinically suspicious lesion. Electronically Signed By: Bryan Chavis M.D. slc/:12/25/2021 14:04:06 copy to: Hayden Braun ACR BI-RADS Category 0: Incomplete 3340F
--- NOTE | 2021-12-25 13:30 | DI.US.S_ITS ---
LIMITED ULTRASOUND OF LEFT BREAST AND AXILLA: 12/25/2021 CLINICAL: Short term follow up left breast biopsy. Comparison is made to exams dated: 12/25/2021 mammogram, 06/20/2021 ultrasound biopsy, 06/20/2021 mammogram, 06/07/2021 ultrasound, 06/07/2021 mammogram, and 04/10/2021 mammogram - [facility]. Color flow and real-time ultrasound of the left breast 2-3 o'clock, and axilla regions were performed. Esqueda scale images of the real-time examination were reviewed. There is a benign 1.4 cm x 0.9 cm x 0.6 cm oval mass with a circumscribed margin in the left breast at 2:30 o'clock middle depth 2 cm from the nipple. This oval mass is hypoechoic. This abnormality is not significantly changed. There is an associated biopsy clip. There also is a benign 0.9 cm x 0.7 cm x 0.4 cm oval mass in the left breast at 2:30 o'clock posterior depth 7 cm from the nipple. This oval mass is hypoechoic. This abnormality is not significantly changed and correlates with the previous biopsy. No significant abnormalities were seen sonographically in the left axilla. IMPRESSION: BENIGN There is no sonographic evidence of malignancy. The 1.4 cm mass in the left breast at 2:30 o'clock middle depth is benign. The 0.9 cm mass in the left breast at 2:30 o'clock posterior depth is benign. No enlarged left axillary lymph nodes. A 1 year screening mammogram is recommended. Exam findings were conveyed to the patient. Patient is advised to monitor for significant change. This exam was interpreted at Station ID: [id number]. Electronically Signed By: Bryan Chavis M.D. slc/:12/25/2021 14:35:43 copy to: Hayden Braun letter sent: Normal Exam Ultrasound BI-RADS: 2 Benign
== END ==
PROVIDERS: PCP Internal Medicine; Referring Provider Specialist; Visit Provider Specialist
DX: N63.21 Unspecified lump in the left breast, upper outer quadrant (principal); R92.2 Inconclusive mammogram; R92.1 Mammographic calcification found on diagnostic imaging of breast
CPT/HCPCS: 76642; 77065; G0279

== ENCOUNTER → 2022-12-11 09:05 | Outpatient (CLI) | payer OTHER, SELFPAY ==
--- NOTE | 2022-12-11 | DI.MRI.S_ITS ---
PROCEDURE: MR SHOULDER RT WO CON INDICATIONS: Impingement syndrome of right shoulder TECHNIQUE: Noncontrast oblique coronal T2 fast spin echo with fat saturation, oblique sagittal T1 spin echo and T2 fast spin echo with fat saturation, axial T1 spin echo and T2 fast spin echo with fat saturation through the shoulder. COMPARISON: None. FINDINGS: Image quality: Excellent. Rotator cuff: There is full-thickness in is rupture involving distal supraspinatus at its insertion on the humeral head with up to 2.9 cm medial retraction of torn tendon fibers to the level of acromion. Moderate grade articular surface partial-thickness tear involving distal infraspinatus is also seen. Distal subscapularis tendinosis and low-grade intrasubstance partial-thickness tear is noted. Sagittal images demonstrate moderate grade supraspinatus muscle atrophy. Bones and bursae: No bone marrow contusions or fractures. Moderate acromioclavicular joint osteoarthritic changes are seen with joint space narrowing and downward osteophyte formation depressing the musculotendinous junction of supraspinatus. Superior migration of humeral head in relation to glenoid is seen. There is moderate amount of joint effusion and subacromial subdeltoid bursal fluid. No gross loose bodies. Capsule and soft tissues: Labrum is grossly intact. The long head of the biceps tendon appears mildly thickened. The rotator interval appears normal, without fibrosis. The coracohumeral ligament is normal in thickness. IMPRESSION: 1. Full-thickness rupture of distal supraspinatus at its insertion on the humeral head with up to 2.9 cm medial retraction of torn tendon fibers to the level of acromion. Moderate grade articular surface partial-thickness tear involving distal infraspinatus. Low-grade intrasubstance partial-thickness tear involving distal subscapularis. Moderate grade supraspinatus muscle atrophy. 2. Superior migration of humeral head in relation to glenoid. Moderate acromioclavicular joint osteoarthritis. No fracture or dislocation. Moderate joint effusion and subacromial subdeltoid bursal fluid, no gross loose bodies. 3. No definite focal labral tear. 4. Proximal long head of biceps tendinosis. Dictated by: Stan Escobar M.D. on 12/11/2022 at 11:54 Approved by: Stan Escobar M.D. on 12/11/2022 at 11:58
== END ==
PROVIDERS: PCP Physician Assistant; Referring Provider Orthopaedic Surgery; Visit Provider Orthopaedic Surgery
DX: M75.121 Complete rotator cuff tear or rupture of right shoulder, not specified as traumatic (principal); M75.41 Impingement syndrome of right shoulder; M19.011 Primary osteoarthritis, right shoulder; M25.411 Effusion, right shoulder
CPT/HCPCS: 73221

== ENCOUNTER 2023-02-02 06:23 | Emergency (ER) | payer OTHER, SELFPAY ==
[2023-02-02 06:35] VITALS: BP 160/87; PULSE 72; RESP 16; TEMP 36.2; O2SAT 97; BMI 25.1
--- NOTE | 2023-02-02 06:36 | ED.GENADULT ---
HPI - General Adult <Steven Pickering DO - Last Filed: 02/02/23 18:11> General Chief complaint: Abdominal Pain Stated complaint: abd pain Time Seen by Provider: 02/02/23 06:23 Source: patient Mode of arrival: Ambulatory Limitations: no limitations History of Present Illness HPI narrative: 72-year-old female who is here for evaluation of abdominal pain. She states that she is had chronic abdominal issues for the past several years for which she is seen multiple specialists and has had multiple procedures. She states she does have a cystocele and rectocele. She is scheduled to have these intervened on but that is not until the end of the year. She states that last evening she had lower abdominal discomfort that has been persistent. No vomiting. She can not remember the last time she would a bowel movement. She is having some issues with urination. She does not think that her cystocele is any larger than what it has been. Related Data Home Medications Medication Instructions Recorded Confirmed clobetasol-emollient 0.05 % 1 alia topical ##30 03/07/16 02/21/22 topical cream triamcinolone acetonide 0.1 % 1 alia topical ##15 03/07/16 02/21/22 topical cream cholecalciferol (vitamin D3) 25 1,000 unit PO DAILY 06/26/18 02/21/22 mcg (1,000 unit) capsule multivit with min-folic tab PO 06/26/18 02/21/22 acid-lutein 200 mcg-137.5 mcg chewable tablet (Adult Multivitamin (w-lutein)) levothyroxine 25 mcg capsule 25 mcg PO DAILY 02/21/22 02/21/22 nicotinamide riboside 250 mg PO .COMPLEX 02/21/22 Previous Rx's Medication Instructions Recorded CMP ESTRIOL 0.2% CREAM CREAM See Rx Instructions .Route 06/19/22 .COMPLEX #30 grams estradiol 0.05 mg/24 hr semiweekly See Rx Instructions .Route 01/20/23 transdermal patch .COMPLEX #48 patches Allergies Allergy/AdvReac Type Severity Reaction Status Date / Time aspirin [ASPIRIN] Allergy Unknown Unverified 04/27/22 13:54 Review of Systems <DO Johny Hoover Last Filed: 02/02/23 18:11> Constitutional Constitutional: Reports system reviewed and no additional complaints, except as documented Gastrointestinal Gastrointestinal: Reports system reviewed and no additional complaints, except as documented Genitourinary Genitourinary: Reports system reviewed and no additional complaints, except as documented Integumentary/Breasts Skin/Breast: Reports system reviewed and no additional complaints, except as documented Neurologic Neurologic: Reports system reviewed and no additional complaints, except as documented Patient History <Steven Pickering DO - Last Filed: 02/02/23 18:11> Medical History Chicken pox pneumonia COVID-19 Functional burping disorder Mumps Sleep-disordered breathing Surgical History S/P abdominal hysterectomy Family History (Updated 07/21/20 @ 09:12 by Chelsea Hairston) Father Heart disease Hypertension Mother No problems noted. Grandfather No problems noted. Grandmother No problems noted. Grandfather No problems noted. Grandmother Stomach cancer Brother Melanoma Social History Smoking Status: Never smoker Smoking Status: Never smoker Exam <Steven Pickering DO - Last Filed: 02/02/23 18:11> Initial Vital Signs Initial Vital Signs: Vital Signs Temperature 97.2 F L 02/02/23 06:35 Pulse Rate 72 02/02/23 06:35 Respiratory Rate 16 02/02/23 06:35 Blood Pressure 160/87 H 02/02/23 06:35 Pulse Oximetry 97 02/02/23 06:35 Oxygen Delivery Method Room Air 02/02/23 06:35 [facility] Head: normal to inspection and normocephalic Resp Effort & Inspection: normal respiratory effort Cardio Rate: regular rate GI Inspection: normal to inspection and distended Palpation: soft, No firm, No guarding and tender Skin General: no rashes or lesions noted Neuro General: patient alert, patient awake and patient oriented x3 <Tiara Carrillo DO - Last Filed: 02/02/23 11:11> Initial Vital Signs Initial Vital Signs: Vital Signs Temperature 97.2 F L 02/02/23 06:35 Pulse Rate 72 02/02/23 06:35 Respiratory Rate 16 02/02/23 06:35 Blood Pressure 160/87 H 02/02/23 06:35 Pulse Oximetry 97 02/02/23 06:35 Oxygen Delivery Method Room Air 02/02/23 06:35 Course <DO Johny Hoover Last Filed: 02/02/23 18:11> Orders Ordered: ED Orders 02/02/23 07:46 CBC Auto Diff [Complete Blood Count AUTO DIFF] Stat CEA [Carcinoembryonic Antigen] Stat CMP [Comprehensive Metabolic Panel] Stat Cancer (Carbohydrate) Ag 19-9 Stat Cancer Antigen 125 Stat Human Epididymis Prot 4 Stat Lipase Stat 02/02/23 08:00 CT chest abd pel w con Stat Vital Signs Vital signs: Vital Signs - 8 hr 02/02/23 06:35 02/02/23 08:31 02/02/23 08:33 Temperature 97.2 F L Pulse Rate 72 70 Respiratory Rate 16 12 Blood Pressure 160/87 H 145/69 H Pulse Oximetry 97 Oxygen Delivery Method Room Air Room Air 02/02/23 08:33 02/02/23 09:00 02/02/23 09:20 Temperature Pulse Rate 63 76 68 Respiratory Rate Blood Pressure Pulse Oximetry 98 98 97 Oxygen Delivery Method 02/02/23 09:20 Temperature Pulse Rate Respiratory Rate Blood Pressure 151/79 H Pulse Oximetry Oxygen Delivery Method <DO Johny Kearney Last Filed: 02/02/23 11:11> Orders Ordered: ED Orders 02/02/23 07:46 CBC Auto Diff [Complete Blood Count AUTO DIFF] Stat CEA [Carcinoembryonic Antigen] Stat CMP [Comprehensive Metabolic Panel] Stat Cancer (Carbohydrate) Ag 19-9 Stat Cancer Antigen 125 Stat Human Epididymis Prot 4 Stat Lipase Stat 02/02/23 08:00 CT chest abd pel w con Stat Vital Signs Vital signs: Vital Signs - 8 hr 02/02/23 06:35 02/02/23 08:31 02/02/23 08:33 Temperature 97.2 F L Pulse Rate 72 70 Respiratory Rate 16 12 Blood Pressure 160/87 H 145/69 H Pulse Oximetry 97 Oxygen Delivery Method Room Air Room Air 02/02/23 08:33 02/02/23 09:00 02/02/23 09:20 Temperature Pulse Rate 63 76 68 Respiratory Rate Blood Pressure Pulse Oximetry 98 98 97 Oxygen Delivery Method 02/02/23 09:20 Temperature Pulse Rate Respiratory Rate Blood Pressure 151/79 H Pulse Oximetry Oxygen Delivery Method Medical Decision Making <DO Johny Hoover Last Filed: 02/02/23 18:11> Lab Data 02/02/23 07:46 02/02/23 07:46 Labs: Lab Results 02/02/23 02/02/23 02/02/23 Range/Units 07:46 07:46 07:46 WBC 7.0 (4.5-11.0) X10^3/uL RBC 3.88 L (4.0-5.2) X10^6/uL Hgb 11.9 L (12.0-16.0) g/dL Hct 35.4 L (36-46) % MCV 91.3 (80-100) fL MCH 30.7 (26-34) PG MCHC 33.6 (30-36) % RDW 13.4 (11.6-14.8) % Plt Count 201 (150-400) X10^3/uL Neut % (Auto) 54.2 (50-75) % Lymph % (Auto) 32.8 (25-40) % [place] % (Auto) 9.0 (3-14) % Eos % (Auto) 3.4 (2-4) % Baso % (Auto) 0.6 (0-2) % Neut # (Auto) 3800 (9619-2624) /uL Lymph # (Auto) 2300 (2083-5345) /uL [place] # (Auto) 600 (0-900) /uL Eos # (Auto) 200 (0-450) /uL Baso # (Auto) 0 (0-100) /uL Sodium 136 L (137-145) mmol/L Potassium 3.9 (3.4-5.1) mmol/L Chloride 102 (98-107) mmol/L Carbon Dioxide 28 (22-32) mmol/L BUN 15 (7-17) mg/dL Creatinine 0.68 (0.52-1.04) mg/dL Estimated GFR > 60 (>60) mL/min BUN/Creatinine Ratio 22.1 H (6-22) Glucose 112 H (80-110) mg/dL Calcium 8.8 (8.4-10.2) mg/dL Total Bilirubin 0.7 (0.2-1.3) mg/dL AST 19 (14-36) IU/L ALT 14 (<35) IU/L Alkaline Phosphatase 33 L (38-126) U/L Total Protein 7.0 (6.3-8.2) g/dL Albumin 4.0 (3.5-5.0) g/dL Globulin 3.0 (1.7-4.1) g/dL Albumin/Globulin Ratio 1.3 (1.0-2.8) Lipase 67 (23-300) U/L Carcinoembryonic Ag 5.6 H (0.1-3.0) ng/mL CA 125 Antigen 104 H (0-35) U/mL Urine Dip Bedside Urine Glucose Negative Bedside Urine Bilirubin - Negative Bedside Urine Ketone - Negative Urine Specific [place] 1.020 Bedside Urine Occult Blood ++ Bedside Urine pH 6.0 Bedside Urine Protein - Negative Bedside Urine Urobilinogen - Negative Bedside Urine Nitrite - Negative Bedside Urine Leukocytes - Negative Esterase Point of care testing: Urine Dip Bedside Urine Glucose Negative Bedside Urine Bilirubin - Negative Bedside Urine Ketone - Negative Urine Specific [place] 1.020 Bedside Urine Occult Blood ++ Bedside Urine pH 6.0 Bedside Urine Protein - Negative Bedside Urine Urobilinogen - Negative Bedside Urine Nitrite - Negative Bedside Urine Leukocytes - Negative Esterase MDM Narrative Medical decision making narrative: Patient has had a longstanding history of various GI issues. Has a known cystocele and rectocele. Bladder scan shows greater than 800 cc of urine. Will place a Yu catheter and re-evaluate. Care turned over to Dr. Carrillo to follow-up and disposition. <Tiara Carrillo, - Last Filed: 02/02/23 11:11> Lab Data Labs: Lab Results 02/02/23 02/02/23 02/02/23 Range/Units 07:46 07:46 07:46 WBC 7.0 (4.5-11.0) X10^3/uL RBC 3.88 L (4.0-5.2) X10^6/uL Hgb 11.9 L (12.0-16.0) g/dL Hct 35.4 L (36-46) % MCV 91.3 (80-100) fL MCH 30.7 (26-34) PG MCHC 33.6 (30-36) % RDW 13.4 (11.6-14.8) % Plt Count 201 (150-400) X10^3/uL Neut % (Auto) 54.2 (50-75) % Lymph % (Auto) 32.8 (25-40) % [place] % (Auto) 9.0 (3-14) % Eos % (Auto) 3.4 (2-4) % Baso % (Auto) 0.6 (0-2) % Neut # (Auto) 3800 (8229-5248) /uL Lymph # (Auto) 2300 (6248-9653) /uL [place] # (Auto) 600 (0-900) /uL Eos # (Auto) 200 (0-450) /uL Baso # (Auto) 0 (0-100) /uL Sodium 136 L (137-145) mmol/L Potassium 3.9 (3.4-5.1) mmol/L Chloride 102 (98-107) mmol/L Carbon Dioxide 28 (22-32) mmol/L BUN 15 (7-17) mg/dL Creatinine 0.68 (0.52-1.04) mg/dL Estimated GFR > 60 (>60) mL/min BUN/Creatinine Ratio 22.1 H (6-22) Glucose 112 H (80-110) mg/dL Calcium 8.8 (8.4-10.2) mg/dL Total Bilirubin 0.7 (0.2-1.3) mg/dL AST 19 (14-36) IU/L ALT 14 (<35) IU/L Alkaline Phosphatase 33 L (38-126) U/L Total Protein 7.0 (6.3-8.2) g/dL Albumin 4.0 (3.5-5.0) g/dL Globulin 3.0 (1.7-4.1) g/dL Albumin/Globulin Ratio 1.3 (1.0-2.8) Lipase 67 (23-300) U/L Carcinoembryonic Ag 5.6 H (0.1-3.0) ng/mL [place] 125 Antigen 104 H (0-35) U/mL Urine Dip Bedside Urine Glucose Negative Bedside Urine Bilirubin - Negative Bedside Urine Ketone - Negative Urine Specific [place] 1.020 Bedside Urine Occult Blood ++ Bedside Urine pH 6.0 Bedside Urine Protein - Negative Bedside Urine Urobilinogen - Negative Bedside Urine Nitrite - Negative Bedside Urine Leukocytes - Negative Esterase Point of care testing: Urine Dip Bedside Urine Glucose Negative Bedside Urine Bilirubin - Negative Bedside Urine Ketone - Negative Urine Specific [place] 1.020 Bedside Urine Occult Blood ++ Bedside Urine pH 6.0 Bedside Urine Protein - Negative Bedside Urine Urobilinogen - Negative Bedside Urine Nitrite - Negative Bedside Urine Leukocytes - Negative Esterase Imaging Data CT scan - chest: Radiologist's Impression: PROCEDURE:? CT CHEST ABD PEL W CON ? INDICATIONS:? lower ab pain with weight loss ? TECHNIQUE:? After the administration of intravenous contrast, 5 mm thick sections acquired from the lung apices to the symphysis.? 5 mm coronal and sagittal reformats were performed, with additional 7 mm MIP reformats through the lungs.? For radiation dose reduction, the following was used:? automated exposure control, adjustment of mA and/or kV according to patient size.? ? COMPARISON:? [facility], , PELVIC COMPLETE, 05/11/2020, 13:11. ? FINDINGS:? ? CHEST:? Lungs and pleura:? Linear and bandlike opacity right lower lobe likely atelectasis.? No pleural effusion.? Few micro nodules present which can be followed on subsequent imaging for example a 2-3 mm right upper lobe nodule (5/135). ? Mediastinum:? ? No pericardial effusion.? No mediastinal or hilar adenopathy by size criteria.? Thoracic aorta and central pulmonary arteries are normal in size.? Esophagus is normal in caliber.? ? Chest wall:? No axillary adenopathy by size criteria.? Possible right supraclavicular adenopathy partially imaged (series 2, image 1). ? ? ABDOMEN:? Solid organs:? Liver is normal in size and enhancement.? Gallbladder is unremarkable .? Biliary system is non dilated.? Dilation of the main pancreatic duct at the pancreatic tail with atrophy of the pancreatic tail also demonstrated.? There is an abrupt caliber transition of the pancreatic duct at the pancreatic body with ill-defined hypodensity present in this area, possible mass, (for example series 2, image 73) approximately 3.1 cm.? Adjacent smaller hypodensity within the pancreas could represent a cyst or solid mass.? Spleen is normal in size and enhancement.? No adrenal nodules.? No hydronephrosis.? Left renal cyst.? ? Peritoneum and bowel:? No bowel obstruction.? Small amount of abdominal and pelvic free fluid. ? Nodes and vessels:? No retroperitoneal or mesenteric adenopathy by size criteria.? Aorta and inferior vena cava are normal in size.? PELVIS:? Genitourinary:? Large heterogeneous cystic and solid appearing pelvic mass, approximate dimensions 16.6 x 13.4 by 16.8 cm.? Per prior pelvic ultrasound patient is post hysterectomy.? Urinary bladder is decompressed with a Yu catheter present. ? Miscellaneous:? No adenopathy.? ? Bones:? Multilevel degenerative change of the visualized spine. ? IMPRESSION:? 1. Large cystic and solid appearing pelvic mass suspicious for malignancy.? Organ of origin is unclear, probably ovarian.? Correlation with any prior history of oophorectomy may be helpful.? Large isolated metastasis related to the pancreatic finding described below considered less likely but not excludable. 2. Abnormal appearance of the pancreas with findings suspicious for a pancreatic mass.? Primary pancreatic neoplasm or metastatic disease to the pancreas possible. 3. Possible supraclavicular lymphadenopathy partially imaged. 4. Small amount abdominal and pelvic free fluid.? ? ? Dictated by: Mike Yip M.D. on 02/02/2023 at 8:19 ? ? MDM Narrative Medical decision making narrative: Patient has had a longstanding history of various GI issues. Has a known cystocele and rectocele. Bladder scan shows greater than [address] of [address] Will place a Yu catheter and re-evaluate. Care turned over to Dr. Carrillo to follow-up and disposition. Dr. Carrillo-patient signed out to me by Dr. Pickering seen evaluated patient myself. Initially thought she had urinary retention bladder scan showed about 800 however Yu catheter is placed in his 100 cc. She is mildlly uncomfortable mild tenderness in right lower quadrant. She is scheduled to have her cystocele repaired in April she feels like it is getting worse. She feels like she is belching more. She is lost about 20 lb over 5 years and only a couple lb over the last 3 months. She is actively trying to keep weight on. No fevers chills no painful or frequent urination. Not feeling significantly better since Yu catheter has been placed. CT shows a large pelvic mass 16 x 13 x 16 cm concerning for malignancy with possible pancreatic mass as well. Dr. Siddiqi ignition specialist has been called and consulted request additional lab work and tumor markers to be added. Will make referral to ignition specialist Oncology and will notify patient tomorrow. Patient has been notified of finding. Offered pain medication but declines at this time. Discharge Plan Departure Patient Disposition: Home Clinical Impression: Pelvic mass Instructions: Ovarian Cancer Activity Restrictions/Additional Instructions: *You have been diagnosed with pelvic mass *What to do: At this time you have a large pelvic mass concerning for cancer but more testing in more information needs to be obtained. Dr. Siddiqi office will contact you tomorrow they will start making a referral for ignition specialist oncology. Please call them by Friday if you have not heard from them. *Continue to take medications as directed *Follow up with your primary care provider in 2-3 days or call [phone] Dr. Siddiqi and her team *Return to ER if you should have increasing pain nausea vomiting inability to urinate or any new, worsening or concerning symptoms Prescriptions: No Action clobetasol-emollient 0.05 % cream 1 alia Topical Qty: 30 triamcinolone acetonide 0.1 % cream 1 alia Topical Qty: 15 CMP ESTRIOL 0.2% CREAM CREAM See Rx Instructions .ROUTE .COMPLEX Qty: 30 2RF Dose Instruction: APPLY THINLY TO EXTERNAL LABIA FOLD 2 TO 3 TIMES A WEEK Rx Instructions: APPLY THINLY TO EXTERNAL LABIA FOLD 2 TO 3 TIMES A WEEK estradiol 0.05 mg/24 hr patch semiweekly See Rx Instructions .ROUTE .COMPLEX Qty: 48 0RF Dose Instruction: Remove old patch and apply 1 new patch to skin twice weekly for hormone replacement. Rx Instructions: Remove old patch and apply 1 new patch to skin twice weekly for hormone replacement. cholecalciferol (vitamin D3) 1,000 unit capsule 1,000 unit PO DAILY [id number] acid-lutein [Adult Multivitamin (w-lutein)] 200-137.5 mcg tablet,chewable PO nicotinamide riboside 250 mg PO .COMPLEX Rx Instructions: 250 mg orally; levothyroxine 25 mcg capsule 25 mcg PO DAILY Referrals: Kayla Pham PA-C [Primary Care Provider] - Stand Alone Forms: Patient Portal/API
--- NOTE | 2023-02-02 08:00 | DI.CT.S_ITS ---
PROCEDURE: CT CHEST ABD PEL W CON INDICATIONS: lower ab pain with weight loss TECHNIQUE: After the administration of intravenous contrast, 5 mm thick sections acquired from the lung apices to the symphysis. 5 mm coronal and sagittal reformats were performed, with additional 7 mm MIP reformats through the lungs. For radiation dose reduction, the following was used: automated exposure control, adjustment of mA and/or kV according to patient size. COMPARISON: [facility], , [place] PELVIC COMPLETE, 05/11/2020, 13:11. FINDINGS: CHEST: Lungs and pleura: Linear and bandlike opacity right lower lobe likely atelectasis. No pleural effusion. Few micro nodules present which can be followed on subsequent imaging for example a 2-3 mm right upper lobe nodule (5/135). Mediastinum: No pericardial effusion. No mediastinal or hilar adenopathy by size criteria. Thoracic aorta and central pulmonary arteries are normal in size. Esophagus is normal in caliber. Chest wall: No axillary adenopathy by size criteria. Possible right supraclavicular adenopathy partially imaged (series 2, image 1). ABDOMEN: Solid organs: Liver is normal in size and enhancement. Gallbladder is unremarkable . Biliary system is non dilated. Dilation of the main pancreatic duct at the pancreatic tail with atrophy of the pancreatic tail also demonstrated. There is an abrupt caliber transition of the pancreatic duct at the pancreatic body with ill-defined hypodensity present in this area, possible mass, (for example series 2, image 73) approximately 3.1 cm. Adjacent smaller hypodensity within the pancreas could represent a cyst or solid mass. Spleen is normal in size and enhancement. No adrenal nodules. No hydronephrosis. Left renal cyst. Peritoneum and bowel: No bowel obstruction. Small amount of abdominal and pelvic free fluid. Nodes and vessels: No retroperitoneal or mesenteric adenopathy by size criteria. Aorta and inferior vena cava are normal in size. PELVIS: Genitourinary: Large heterogeneous cystic and solid appearing pelvic mass, approximate dimensions 16.6 x 13.4 by 16.8 cm. Per prior pelvic ultrasound patient is post hysterectomy. Urinary bladder is decompressed with a Yu catheter present. Miscellaneous: No adenopathy. Bones: Multilevel degenerative change of the visualized spine. IMPRESSION: 1. Large cystic and solid appearing pelvic mass suspicious for malignancy. Organ of origin is unclear, probably ovarian. Correlation with any prior history of oophorectomy may be helpful. Large isolated metastasis related to the pancreatic finding described below considered less likely but not excludable. 2. Abnormal appearance of the pancreas with findings suspicious for a pancreatic mass. Primary pancreatic neoplasm or metastatic disease to the pancreas possible. 3. Possible supraclavicular lymphadenopathy partially imaged. 4. Small amount abdominal and pelvic free fluid. Dictated by: Mike Yip M.D. on 02/02/2023 at 8:19 Approved by: Mike Yip M.D. on 02/02/2023 at 8:39
[2023-02-02 08:03] LABS: Add Manual Diff / Slide Review NO; Basophils Absolute Auto 0 /uL (0-100); Basophils Percent Auto 0.6 % (0-2); Eosinophils Absolute Auto 200 /uL (0-450); Eosinophils Percent Auto 3.4 % (2-4); Hematocrit 35.4 % (36-46); Hemoglobin 11.9 g/dL (12.0-16.0); Lymphocytes Absolute Auto 2300 /uL (1100-4500); Lymphocytes Percent Auto 32.8 % (25-40); Mean Corpuscular HGB Conc 33.6 % (30-36); Mean Corpuscular Hemoglobin 30.7 PG (26-34); Mean Corpuscular Volume 91.3 fL (80-100); Monocytes Absolute Auto 600 /uL (0-900); Neutrophils Absolute Auto 3800 /uL (1500-7000); Neutrophils Percent Auto 54.2 % (50-75); Platelet Count 201 X10^3/uL (150-400); Red Blood Cell Count 3.88 X10^6/uL (4.0-5.2); Red Cell Distribution Width 13.4 % (11.6-14.8)
[2023-02-02 08:19] LABS: Alanine Aminotransferase 14 IU/L (<35); Albumin Globulin Ratio 1.3 (1.0-2.8); Alkaline Phosphatase 33 U/L (38-126); Aspartate Aminotransferase 19 IU/L (14-36); BUN Creatinine Ratio 22.1 (6-22); Bilirubin Total 0.7 mg/dL (0.2-1.3); Blood Urea Nitrogen 15 mg/dL (7-17); Calcium 8.8 mg/dL (8.4-10.2); Carbon Dioxide 28 mmol/L (22-32); Chloride 102 mmol/L (98-107); Estimated Glomerular Filt Rate > 60 mL/min (>60); Glucose 112 mg/dL (80-110); HEMOLYSIS < 15 (0-50); Lipase 67 U/L (23-300); Potassium 3.9 mmol/L (3.4-5.1); Sodium 136 mmol/L (137-145)
[2023-02-02 08:31] VITALS: PULSE 70
[2023-02-02 08:33] VITALS: BP 145/69; PULSE 63; RESP 12; O2SAT 98
[2023-02-02 09:00] VITALS: PULSE 76; O2SAT 98
[2023-02-02 09:20] VITALS: BP 151/79; PULSE 68; O2SAT 97
[2023-02-02 09:42] LABS: Cancer Antigen 125 104 U/mL (0-35); Carcinoembryonic Antigen 5.6 ng/mL (0.1-3.0)
[2023-02-03 22:36] LABS: Cancer (Carbohydrate) Ag 19-9 18 U/mL (0-35)
== END 2023-02-02 09:34 | disposition home or self-care (01) ==
PROVIDERS: Emergency Provider Emergency Medicine; Family Provider Physician Assistant; PCP Physician Assistant
DX: R19.00 Intra-abdominal and pelvic swelling, mass and lump, unspecified site (principal); R10.31 Right lower quadrant pain
CPT/HCPCS: 36415; 51798; 71260; 74177; 80053; 81003; 82378; 83690; 85025; 86301; 86304; 86305; 99284; Q9967

== ENCOUNTER 2023-02-19 03:29 | Emergency (ER) | payer OTHER, SELFPAY ==
--- NOTE | 2023-02-19 03:30 | ED.GENADULT ---
HPI - General Adult General Chief complaint: Upper Respiratory Symptoms Stated complaint: Throat pain Time Seen by Provider: 02/19/23 03:30 History of Present Illness HPI narrative: 72-year-old female with recently diagnosed large pelvic mass and possible pancreatic mass presents with sore throat worsening over the past few days. She states she recently had an endoscopy which seemed to have been uneventful and she is had some throat discomfort ever since but it seems to be worsening. She now has some difficulty swallowing and thinks she sees some redness and irritation in the back of her throat. She is concerned that there maybe something more significant and wanted to be checked out. She denies fever chills. She denies runny nose, cough or shortness of breath. She denies any nausea, vomiting or diarrhea. Related Data Home Medications Medication Instructions Recorded Confirmed clobetasol-emollient 0.05 % 1 alia topical ##30 03/07/16 02/21/22 topical cream triamcinolone acetonide 0.1 % 1 alia topical ##15 03/07/16 02/21/22 topical cream cholecalciferol (vitamin D3) 25 1,000 unit PO DAILY 06/26/18 02/21/22 mcg (1,000 unit) capsule multivit with min-folic tab PO 06/26/18 02/21/22 acid-lutein 200 mcg-137.5 mcg chewable tablet (Adult Multivitamin (w-lutein)) levothyroxine 25 mcg capsule 25 mcg PO DAILY 02/21/22 02/21/22 nicotinamide riboside 250 mg PO .COMPLEX 02/21/22 Previous Rx's Medication Instructions Recorded CMP ESTRIOL 0.2% CREAM CREAM See Rx Instructions .Route 06/19/22 .COMPLEX #30 grams estradiol 0.05 mg/24 hr semiweekly 1 patch transdermal 2XW #24 patches 02/10/23 transdermal patch Allergies Allergy/AdvReac Type Severity Reaction Status Date / Time aspirin [ASPIRIN] Allergy Unknown Unverified 04/27/22 13:54 Review of Systems Review of Systems Narrative: GENERAL: Denies chills, fatigue, malaise, fever, sweats. HEENT: See HPI RESPIRATORY: Denies dyspnea, cough, wheezing, hemoptysis, sputum. CARDIOVASCULAR: Denies chest pain, palpitations, orthopnea, edema, GASTROINTESTINAL: Denies nausea, vomiting, abdominal pain, diarrhea, constipation, melena. : Denies dysuria, frequency, incontinence, hematuria, urinary retention. MUSCULOSKELETAL: denies weakness, joint pain, or bony pain SKIN: Denies rash, skin lesions, or other NEUROLOGIC: Denies weakness, headache, numbness, change in speech, confusion, seizures, incoordination. PSYCHIATRIC: No concerning psychosocial issues. 12 point review of systems is negative except for those stated above Patient History Medical History Chicken pox pneumonia COVID-19 Functional burping disorder Mumps Sleep-disordered breathing Surgical History S/P abdominal hysterectomy Family History (Updated 07/21/20 @ 09:12 by Chelsea Hairston) Father Heart disease Hypertension Mother No problems noted. Grandfather No problems noted. Grandmother No problems noted. Grandfather No problems noted. Grandmother Stomach cancer Brother Melanoma Social History Smoking Status: Never smoker Smoking Status: Never smoker alcohol intake frequency: holidays/special occasions only Substance Use Type: marijuana Exam Narrative Exam Narrative: GEN: AOx3 and in mild distress EYES: Pupils are equal, round, and reactive to light and accommodation. Extraoccular muscles are intact bilaterally. There is no subconjunctival hemorrhage or exudate. ENT: minimal post pharyngeal erythema, no tonsilalr swelling or exudate. No uvular pointing or fullness. Airway patent. No tender lymphadenopathy CHEST: Lungs are clear to auscultation bilaterally and free of wheezes, rales, or rhonchi. Heart rate is regular rhythm, there are no murmurs, clicks, rubs, or gallops. There is no chest wall tenderness. ABD: Abdomen is soft and nontender. There is no guarding or rebound. Bowel sounds are normal in all 4 quadrants. There is no mass or organomegaly. EXT: Full painless ROM of all extremities with no loss of sensation or strength. SKIN: Warm, pink, and dry. No erythema or rash Initial Vital Signs Initial Vital Signs: Vital Signs Pulse Rate 83 02/19/23 03:35 Blood Pressure 179/98 H 02/19/23 03:35 Pulse Oximetry 97 02/19/23 03:35 Course Orders Ordered: ED Orders 02/19/23 03:57 COVID19 -Nasal RAPID Stat Strep Grp A by PCR Rapid Stat Throat Culture Stat Vital Signs Vital signs: Vital Signs - 8 hr 02/19/23 03:37 02/19/23 03:35 02/19/23 03:35 Temperature 97.4 F L Pulse Rate 83 83 Respiratory Rate 18 Blood Pressure 179/98 H 179/98 H Pulse Oximetry 97 97 Oxygen Delivery Method Room Air 02/19/23 04:00 02/19/23 04:00 02/19/23 04:30 Temperature Pulse Rate 68 Respiratory Rate Blood Pressure 153/72 H 145/76 H Pulse Oximetry 95 Oxygen Delivery Method 02/19/23 04:30 Temperature Pulse Rate 69 Respiratory Rate Blood Pressure Pulse Oximetry 97 Oxygen Delivery Method Medical Decision Making Lab Data Labs: Lab Results 02/19/23 02/19/23 Range/Units 03:57 03:57 SARS-CoV-2 (PCR) Negative (Negative) Group A Strep (PCR) Negative (Negative) MDM Narrative Medical decision making narrative: [72] year old patient presents with throat pain Multiple etiologies for patient's symptoms considered including, but not limited to: Irritation from EGD versus strep versus COVID versus other infectious source versus peritonsillar abscess versus other [] Prior Charts reviewed in our EMR Primary Historian: patient Labs reviewed and interpreted by myself: Rapid strep NEG, rapid COVID NEG Patient's history and physical exam are reassuring, no obvious swelling, patient controlling secretions and managing airway without difficulty. Rapid strep negative, COVID negative, culture pending. No swelling, bleeding or other obvious abnormality noted. Patient appropriate for discharge, return precautions discussed. Findings and discharge diagnosis discussed with patient/family followed by verbalization of understanding Return precautions discussed with patient/family whom verbalize understanding of diagnosis and plan Discharge Plan Departure Patient Disposition: Home Clinical Impression: Pain in throat Instructions: Sore Throat Activity Restrictions/Additional Instructions: *You have been diagnosed with [sore throat. As we discussed your history and physical exam are reassuring, your COVID test and strep test were both negative in your throat culture is still pending. These tests usually take 2-4 days to return, if there is an abnormal finding that requires a specific treatment we will call you with instructions *What to do: *Please continue to take your regular medications as directed. [ ] New medication prescriptions sent to your pharmacy: [ ] [ ] New medication written as a paper prescription [ ] No new medications given *Please follow up with your primary care provider in 2-3 days, call for an appointment. Let them know you were seen in the Emergency Department and that we ask that you be seen in follow up. We will electronically transmit a record of today's note if your PCP is in our system *Return to Emergency Department if you should have any new, worsening or concerning symptoms, such as [fever greater than 101 F, shaking chills, worsening pain, persistent vomiting or other bothersome symptoms] Prescriptions: No Action clobetasol-emollient 0.05 % cream 1 alia Topical Qty: 30 triamcinolone acetonide 0.1 % cream 1 alia Topical Qty: 15 CMP ESTRIOL 0.2% CREAM CREAM See Rx Instructions .ROUTE .COMPLEX Qty: 30 2RF Dose Instruction: APPLY THINLY TO EXTERNAL LABIA FOLD 2 TO 3 TIMES A WEEK Rx Instructions: APPLY THINLY TO EXTERNAL LABIA FOLD 2 TO 3 TIMES A WEEK estradiol 0.05 mg/24 hr patch semiweekly 1 patch transdermal 2XW Qty: 24 3RF cholecalciferol (vitamin D3) 1,000 unit capsule 1,000 unit PO DAILY [id number] acid-lutein [Adult Multivitamin (w-lutein)] 200-137.5 mcg tablet,chewable PO nicotinamide riboside 250 mg PO .COMPLEX Rx Instructions: 250 mg orally; levothyroxine 25 mcg capsule 25 mcg PO DAILY Referrals: Kayla Pham PA-C [Primary Care Provider] - Stand Alone Forms: Patient Portal/API
[2023-02-19 03:35] VITALS: BP 179/98; PULSE 83; O2SAT 97
[2023-02-19 03:37] VITALS: BP 179/98; PULSE 83; RESP 18; TEMP 36.3; O2SAT 97; BMI 25.1
[2023-02-19 04:00] VITALS: BP 153/72; PULSE 68; O2SAT 95
[2023-02-19 04:22] LABS: Strep Grp A by PCR Rapid Negative (Negative)
[2023-02-19 04:24] LABS: COVID19 -Nasal RAPID Negative (Negative)
[2023-02-19 04:30] VITALS: BP 145/76; PULSE 69; O2SAT 97
== END 2023-02-19 04:39 | disposition home or self-care (01) ==
PROVIDERS: Emergency Provider Emergency Medicine; Family Provider Physician Assistant; PCP Physician Assistant
DX: J02.9 Acute pharyngitis, unspecified (principal); Z20.822 Contact with and (suspected) exposure to COVID-19
CPT/HCPCS: 87070; 87635; 87651; 99282; C9803